=== PATIENT | male | born 1985 ===

== ENCOUNTER 2021-08-13 08:14 | Emergency (ER) | payer OTHER ==
[~2021-08-13] VITALS: Ht 157 cm; Wt 70.0 kg
[2021-08-13] MEDS ORDERED: LACTATED RINGERS 1,000 ML IV ONE ×2 (08:45→11:00)
[2021-08-13 09:00] LABS: ALBUMIN 4.4 GM/DL (3.2-4.5)
[2021-08-13 09:01] LABS: CALCIUM 9.7 MG/DL (8.5-10.1)
[2021-08-13 09:03] LABS: TOTAL PROTEIN 8.5 GM/DL (6.4-8.2)
[2021-08-13 09:04] LABS: BILIRUBIN,TOTAL 0.9 MG/DL (0.1-1.0)
[2021-08-13 09:06] LABS: CREATININE SERUM 0.79 MG/DL (0.60-1.30)
[2021-08-13] MEDS ORDERED: metroNIDAZOLE 500MG/100ML IVPB 100 ML IV ONE (09:15)
[2021-08-13] MEDS ORDERED: cefTRIAXone 1 GM PRE-MIX 50 ML IV ONE (09:15)
[2021-08-13] MEDS ORDERED: fentaNYL INJ 100 MCG/2 ML AMP IVP ONE (09:15)
[2021-08-13] MEDS ORDERED: ONDANSETRON 4 MG/2 ML (SDV) Z0FRAN IVP ONE (09:15)
[2021-08-13] MEDS ORDERED: NS IV 500 ML 500 ML IV ONE (09:15)
[2021-08-13 09:17] LABS: CLARITY,URINE CLEAR; COLOR,URINE YELLOW; GLUCOSE, URINE (UA) NEGATIVE (NEGATIVE); KETONES,URINE NEGATIVE (NEGATIVE); NITRITE,URINE NEGATIVE (NEGATIVE); PROTEIN,URINE 1+ (NEGATIVE)
[2021-08-13 09:18] LABS: BACTERIA,URINE NEGATIVE /HPF; BILIRUBIN,URINE NEGATIVE (NEGATIVE); LEUKOCYTE ESTERASE ,URINE NEGATIVE (NEGATIVE)
[2021-08-13 09:20] LABS: BASOPHILS % (AUTO) 0 % (0-10); EOSINOPHILS % (AUTO) 0 % (0-10); HEMATOCRIT 45 % (40-54); HEMOGLOBIN 15.5 g/dL (13.3-17.7); LYMPHOCYTES # (AUTO) 2.6 10^3/uL (1.0-4.0); LYMPHOCYTES % (AUTO) 15 % (12-44); MEAN CORPUSCULAR HEMOGLOBIN 31 pg (25-34); MEAN CORPUSCULAR HGB CONC 34 g/dL (32-36); MEAN CORPUSCULAR VOLUME 91 fL (80-99); MEAN PLATELET VOLUME 10.8 fL (9.0-12.2); MONOCYTES # (AUTO) 1.1 10^3/uL (0.0-1.0); MONOCYTES % (AUTO) 6 % (0-12); NEUTROPHILS # (AUTO) 13.5 10^3/uL (1.8-7.8); NEUTROPHILS % (AUTO) 78 % (42-75); PLATELET COUNT 439 10^3/uL (130-400); WHITE BLOOD COUNT 17.3 10^3/uL (4.3-11.0)
--- NOTE | 2021-08-13 09:20 | ED Abdominal Pain ---
General Chief Complaint: Abdominal/GI Problems Stated Complaint: ABD PAIN - FEVER Nursing Triage Note: ARRIVED VIA AMB WITHOUT DIFFICULTY. COMPLAINS OF LEFT LOWER ABD PAIN. STATES IT HURTS TO PEE AND POOP. ALSO COMPLAINS OF FEVER, COUGH, AND SORE THROAT. Source of Information: Patient Exam Limitations: Language Barrier (Use the language tablet historic interpreter) History of Present Illness Date Seen by Provider: Aug 13, 2021 Time Seen by Provider: 08:35 Initial Comments Patient presents ER by private conveyance chief complaint since yesterday afternoon he had some nontraumatic abdominal pain mostly down in his left lower quadrant abdomen. Not going into the flank or back. Little bit into his right lower quadrant as well. Painful urination, constipation had a small hard stool yesterday. No blood in the stool. No history of diverticulitis. No history of surgeries or colonoscopy. He does not follow with a doctor routinely. He is a little bit of nausea but no vomiting. He had some chills and sweats throughout the night. He took Tylenol which helped with the chills but not with his pain which he still rates as just under a 10 out of 10. Allergies and Home Medications Allergies Coded Allergies: No Known Drug Allergies (Unverified , 08/13/21) Patient Home Medication List Home Medication List Reviewed: Yes Review of Systems Review of Systems Constitutional: see HPI, chills, diaphoresis, fever (Subjective) EENTM: No Blurred Vision, No Double Vision Respiratory: Denies Cough, Denies Shortness of Air Cardiovascular: Denies Chest Pain, Denies Lightheadedness Gastrointestinal: See HPI, Abdominal Pain, Constipated; Denies Diarrhea; Nausea; Denies Poor Fluid Intake, Denies Vomiting Genitourinary: Burning; Denies Discharge Musculoskeletal: No back pain, No joint pain Skin: No pruritus, No rash All Other Systems Reviewed Negative Unless Noted: Yes Past Awhsvhf-Widrpx-Jywmlm Hx Patient Social History Tobacco Use?: No Substance use?: No Alcohol Use?: Yes Alcohol Frequency: Once in a while Immunizations Up To Date Second COVID19 Vaccination Sean: WN DATE COVID19 Vaccine Banquet Pilot: MODERNA Physical Exam Vital Signs Vital Signs - First Documented 08/13/21 08:30 Temp 37.1 Pulse 113 Resp 16 B/P (MAP) 144/98 (113) Pulse Ox 96 O2 Delivery Room Air Capillary Refill : Less Than 3 Seconds Height/Weight/BMI Height: '" Weight: lbs. oz. kg; 28.00 BMI Method: General Appearance: WD/WN, moderate distress HEENT: PERRL/EOMI, pharynx normal (Mildly dry oral mucosa) Neck: full range of motion, normal inspection Respiratory: lungs clear, normal breath sounds, no respiratory distress, no accessory muscle use Cardiovascular: normal peripheral pulses, regular rate, rhythm, tachycardia (120) Peripheral Pulses: 2+ Radial Pulses (R), 2+ Radial Pulses (L) Gastrointestinal: normal bowel sounds, soft, tenderness (Left lower quadrant pain, negative Rovsing sign, negative psoas sign, mild McBurney's point tenderness. Negative for Tejeda sign) Extremities: non-tender, normal inspection, normal capillary refill Back: normal inspection, CVA tenderness (L) (A little bit) Neurologic/Psychiatric: alert, normal mood/affect, oriented x 3 Skin: normal color, warm/dry Focused Exam Lactate Level 08/13/21 08:35: Lactic Acid Level 0.99 Lactic Acid Level Laboratory Tests Test 08/13/21 08:35 Lactic Acid Level 0.99 MMOL/L (0.50-2.00) Progress/Results/Core Measures Results/Orders Lab Results Laboratory Tests Test 08/13/21 08:35 08/13/21 08:44 Range/Units White Blood Count 17.3 H 4.3-11.0 10^3/uL Red Blood Count 4.98 4.30-5.52 10^6/uL Hemoglobin 15.5 13.3-17.7 g/dL Hematocrit 45 40-54 % Mean Corpuscular Volume 91 80-99 fL Mean Corpuscular Hemoglobin 31 25-34 pg Mean Corpuscular Hemoglobin Concent 34 32-36 g/dL Red Cell Distribution Width 11.9 10.0-14.5 % Platelet Count 439 H 130-400 10^3/uL Mean Platelet Volume 10.8 9.0-12.2 fL Immature Granulocyte % (Auto) 1 % Neutrophils (%) (Auto) 78 H 42-75 % Lymphocytes (%) (Auto) 15 12-44 % Monocytes (%) (Auto) 6 0-12 % Eosinophils (%) (Auto) 0 0-10 % Basophils (%) (Auto) 0 0-10 % Neutrophils # (Auto) 13.5 H 1.8-7.8 10^3/uL Lymphocytes # (Auto) 2.6 1.0-4.0 10^3/uL Monocytes # (Auto) 1.1 H 0.0-1.0 10^3/uL Eosinophils # (Auto) 0.0 0.0-0.3 10^3/uL Basophils # (Auto) 0.0 0.0-0.1 10^3/uL Immature Granulocyte # (Auto) 0.1 0.0-0.1 10^3/uL Neutrophils % (Manual) 65 % Lymphocytes % (Manual) 15 % Monocytes % (Manual) 11 % Eosinophils % (Manual) 0 % Basophils % (Manual) 0 % Band Neutrophils 2 % Reactive Lymphocytes 7 % Blood Morphology Comment NORMAL Prothrombin Time 13.5 12.2-14.7 SEC INR Comment 1.0 0.8-1.4 Activated Partial Thromboplast Time 30 24-35 SEC Sodium Level 137 135-145 MMOL/L Potassium Level 4.0 3.6-5.0 MMOL/L Chloride Level 100 98-107 MMOL/L Carbon Dioxide Level 23 21-32 MMOL/L Anion Gap 14 5-14 MMOL/L Blood Urea Nitrogen 12 7-18 MG/DL Creatinine 0.79 0.60-1.30 MG/DL Estimat Glomerular Filtration Rate 119 BUN/Creatinine Ratio 15 Glucose Level 145 H 70-105 MG/DL Lactic Acid Level 0.99 0.50-2.00 MMOL/L Calcium Level 9.7 8.5-10.1 MG/DL Corrected Calcium 9.4 8.5-10.1 MG/DL Total Bilirubin 0.9 0.1-1.0 MG/DL Aspartate Amino Transf (AST/SGOT) 20 5-34 U/L Alanine Aminotransferase (ALT/SGPT) 38 0-55 U/L Alkaline Phosphatase 105 40-136 U/L C-Reactive Protein High Sensitivity 12.22 H 0.00-0.50 MG/DL Total Protein 8.5 H 6.4-8.2 GM/DL Albumin 4.4 3.2-4.5 GM/DL Lipase 11 8-78 U/L SARS-CoV-2 RNA (RT-PCR) Not Detected Not Detecte Urine Color YELLOW Urine Clarity CLEAR Urine pH 6.0 5-9 Urine Specific [place] >1.030 1.016-1.022 Urine Protein 1+ H NEGATIVE Urine Glucose (UA) NEGATIVE NEGATIVE Urine Ketones NEGATIVE NEGATIVE Urine Nitrite NEGATIVE NEGATIVE Urine Bilirubin NEGATIVE NEGATIVE Urine Urobilinogen 0.2 < = 1.0 MG/DL Urine Leukocyte Esterase NEGATIVE NEGATIVE Urine RBC (Auto) TRACE H NEGATIVE Urine RBC NONE /HPF Urine WBC NONE /HPF Urine Squamous Epithelial Cells NONE /HPF Urine Crystals NONE /LPF Urine Bacteria NEGATIVE /HPF Urine Casts NONE /LPF Urine Mucus NEGATIVE /LPF Urine Culture Indicated NO My Orders Orders - EDIS BARBA Ua Culture If Indicated (08/13/21 08:37) Ed Iv/Invasive Line Start (08/13/21 08:41) Lactated Ringers (Lr 1000 Ml Iv Solution (08/13/21 08:45) Cbc With Automated Diff (08/13/21 08:41) Comprehensive Metabolic Panel (08/13/21 08:41) Hs C Reactive Protein (08/13/21 08:41) Lipase (08/13/21 08:41) Covid 19 Inhouse Test (08/13/21 08:41) Ondansetron Injection (Zofran Injectio (08/13/21 09:15) Fentanyl Inj (Sublimaze Injection) (08/13/21 09:15) Blood Culture (08/13/21 09:13) Urine Culture (08/13/21 09:13) Protime With Inr (08/13/21 09:13) Partial Thromboplastin Time (08/13/21 09:13) Chest 1 View, Ap/Pa Only (08/13/21 09:13) Ed Iv/Invasive Line Start (08/13/21 09:13) Ed Iv/Invasive Line Start (08/13/21 09:13) Vital Signs Adult Sepsis Patie Q15M (08/13/21 09:13) Remove Rings In Anticipation O (08/13/21 09:13) Lactic Acid Analyzer (08/13/21 09:13) Ceftriaxone 1 Gm Pre-Mix (Rocephin 1 Gm (08/13/21 09:15) Metronidazole 500mg/100ml Ivpb (Flagyl 5 (08/13/21 09:15) Ed Iv/Invasive Line Start (08/13/21 09:13) Ns Iv 500 Ml (Sodium Chloride 0.9%) (08/13/21 09:15) Manual Differential (08/13/21 08:35) Ct Abdomen/Pelvis Wo (08/13/21 09:22) Ed Iv/Invasive Line Start (08/13/21 10:51) Lactated Ringers (Lr 1000 Ml Iv Solution (08/13/21 11:00) Morphine Injection (Morphine Injection (08/13/21 10:51) Medications Given in ED Current Medications Medications Dose Ordered Sig/Annabelle Route Start Time Stop Time Status Last Admin Dose Admin Ceftriaxone Sodium/Dextrose 50 ml @ 100 mls/hr ONCE ONCE IV 08/13/21 09:15 08/13/21 09:44 DC 08/13/21 10:02 100 MLS/HR Fentanyl Citrate 50 mcg ONCE ONCE IVP 08/13/21 09:15 08/13/21 09:16 DC 08/13/21 09:27 50 MCG Lactated Ringer's 1,000 ml @ 0 mls/hr Q0M ONCE IV 08/13/21 08:45 08/13/21 08:46 DC 08/13/21 08:58 1,000 MLS/HR Lactated Ringer's 1,000 ml @ 0 mls/hr Q0M ONCE IV 08/13/21 11:00 08/13/21 11:01 DC 08/13/21 11:05 1,000 MLS/HR Metronidazole 100 ml @ 100 mls/hr ONCE ONCE IV 08/13/21 09:15 08/13/21 10:14 DC 08/13/21 10:33 100 MLS/HR Ondansetron HCl 8 mg ONCE ONCE IVP 08/13/21 09:15 08/13/21 09:16 DC 08/13/21 09:26 8 MG Sodium Chloride 500 ml @ 0 mls/hr Q0M ONCE IV 08/13/21 09:15 08/13/21 09:16 DC 08/13/21 10:02 500 MLS/HR Vital Signs/I&O 08/13/21 08:30 Temp 37.1 Pulse 113 Resp 16 B/P (MAP) 144/98 (113) Pulse Ox 96 O2 Delivery Room Air Blood Pressure Mean: 113 Progress Progress Note #1: Time: :22 Progress Note Septic work-up with a suspected infection perhaps UTI/pyelonephritis/ureteral c alculus versus colitis/less likely appendicitis. After we get his urine back we will make a decision on CT scan with or without IV contrast. Progress Note #2: Time: 10:50 Progress Note The patient's nausea is gone however his pain is not terribly improved. He says is about the same as before. We are going to try 6 mg of morphine give him another liter of fluids since he is still tachycardic. We did discuss inpatient versus outpatient management of diverticulitis. He would like to try and go outpatient if we get his pain under better control. Progress Note #3: Time: 11:40 Progress Note Patient states his pain is significantly less and he is ready to go home. We will make sure he has some pain medications, nausea medicines and put him on Cipro and Flagyl. Since he does not have a primary care provider we have encouraged him to establish care and follow-up with 1 or follow-up in 1 week with the surgeon to make sure he has improving. We did go over return precautions. Diagnostic Imaging Diagonstic Imaging: Xray Plain Films/CT/US/NM/MRI: chest Comments [facility], [place] NAME: ASHLYN GUTIERREZ [facility] REC#: [id number] PT STATUS: REG ER : 1985 PHYSICIAN: EDIS BARBA MD ADMIT DATE: 08/13/21/ER Draft Date of Exam:08/13/21 CHEST 1 VIEW, AP/PA ONLY CLINICAL INDICATION: Patient with sepsis. EXAM: Portable chest x-ray upright view. COMPARISON: None. FINDINGS: Lungs/pleura: There is mild bibasilar atelectasis. Otherwise, lungs are clear. There is no pneumothorax. There is no pleural effusion. Mediastinum: Unremarkable. Pulmonary vasculature: Unremarkable. Heart: Unremarkable. Bones/extrathoracic soft tissue: Unremarkable. IMPRESSION: There is mild bibasilar atelectasis. There is no radiographic evidence of acute cardiopulmonary process. Dictated on workstation # [id number] Dict: 08/13/21 0929 Trans: 08/13/21 0939 TONIO [id number] Interpreted by: CLAUDETTE YEUNG MD Electronically signed by: Reviewed: Reviewed by Me Diagonstic Imaging: CT Plain Films/CT/US/NM/MRI: abdomen, pelvis Comments [facility] [place], [place] NAME: ASHLYN GUTIERREZ [facility] REC#: [id number] PT STATUS: REG ER : 1985 PHYSICIAN: EDIS BARBA MD ADMIT DATE: 08/13/21/ER Draft Date of Exam:08/13/21 CT ABDOMEN/PELVIS WO PROCEDURE: CT abdomen and pelvis without contrast. TECHNIQUE: Multiple contiguous axial images were obtained through the abdomen and pelvis without the use of intravenous contrast. Auto Exposure Controls were utilized during the CT exam to meet ALARA standards for radiation dose reduction. INDICATION: Cough and fever with abdominal pain FINDINGS: There is low density throughout the liver indicating steatosis. No focal hepatic, gallbladder, pancreatic or splenic abnormality is identified. Adrenal glands and kidneys are also unremarkable. There is mural thickening extending from the descending colon through the proximal sigmoid colon with surrounding edema and inflammation. There is also calcification within what appear to be several diverticula within the segment of colon. Unopacified urinary bladder is unremarkable. There is herniation of fat into the right inguinal canal. There is no evidence of appendiceal inflammation. No abscess or pneumoperitoneum is identified. IMPRESSION: Mural thickening and inflammation extending from the descending colon to the proximal sigmoid colon likely related to acute diverticulitis without CT evidence of abscess or pneumoperitoneum. Dictated on workstation # [id number] Dict: 08/13/21 0943 Trans: 08/13/21 0959 TONIO [id number] Interpreted by: LUNA LOZADA MD Electronically signed by: Reviewed: Reviewed by Me Departure Impression Primary Impression: Diverticulitis of intestine Qualified Codes: K57.32 - Diverticulitis of large intestine without perforation or abscess without bleeding Disposition: 01 HOME, SELF-CARE Condition: Stable Departure-Patient Inst. Decision time for Depature: 11:41 Referrals: [facility] (PCP/Family) Primary Care Physician ROBI HAYWARD MD Patient Instructions: Diverticulitis (DC) Add. Discharge Instructions: Drink plenty of fluids. Hydrocodone 1 to 2 tablets every 4 hours as needed for severe pain. Ondansetron 1 tablet every 6 hours as needed for nausea or vomiting. Flagyl 1 capsule 3 times a day with something to eat or drink. Ciprofloxacin 1 tablet twice a day for a week. Stick to a liquid diet until your nausea is gone and then you can increase to a soft, nonspicy, nongreasy meals. As your symptoms improve you can advance your diet towards a normal, regular diet. If you need help managing symptoms or not improving by next Wednesday then follow- up with Dr. HAYWARD, general surgery for recheck. If your symptoms are significantly worse or you are having intractable pain, intractable nausea, fever above 102.5 or other worrisome symptoms then please return to the ER and allow us to help you. All discharge instructions reviewed with patient and/or family. Voiced unders tanding. Scripts Ciprofloxacin HCl (Ciprofloxacin HCl) 500 Mg Tablet 500 MG PO BID for 7 Days, #14 TAB 0 Refills Prov: EDIS BARBA 08/13/21 Metronidazole (Metronidazole) 500 Mg Tablet 500 MG PO TID for 7 Days, #21 TAB 0 Refills Prov: EDIS BARBA 08/13/21 Ondansetron (Ondansetron Odt) 4 Mg Tab.rapdis 4 MG PO Q6H PRN for NAUSEA/VOMITING, #15 TAB 0 Refills Prov: EDIS BARBA 08/13/21 Hydrocodone/Acetaminophen (Hydrocodone-Acetamin 5-325 mg) 5 Mg-325 Mg Tablet 1-2 TAB PO Q4H PRN for PAIN-MODERATE (5-7), #22 TAB 0 Refills Prov: EDIS BARBA 08/13/21 Work/School Note: Work Release Form Date Seen in the Emergency Department: Aug 13, 2021 Return to Work: Aug 18, 2021 Restrictions: No Restrictions Copy Copies To 1: ROBI HAYWARD MD, TITUS J Aug 13, 2021 09:20
[2021-08-13 09:31] LABS: PROTHROMBIN TIME PATIENT 13.5 SEC (12.2-14.7)
--- NOTE | 2021-08-13 09:39 | Diagnostic Imaging Report ---
CLINICAL INDICATION: Patient with sepsis. EXAM: Portable chest x-ray upright view. COMPARISON: None. FINDINGS: Lungs/pleura: There is mild bibasilar atelectasis. Otherwise, lungs are clear. There is no pneumothorax. There is no pleural effusion. Mediastinum: Unremarkable. Pulmonary vasculature: Unremarkable. Heart: Unremarkable. Bones/extrathoracic soft tissue: Unremarkable. IMPRESSION: There is mild bibasilar atelectasis. There is no radiographic evidence of acute cardiopulmonary process. Dictated by: Dictated on workstation # [id number]
--- NOTE | 2021-08-13 10:00 | Diagnostic Imaging Report ---
PROCEDURE: CT abdomen and pelvis without contrast. TECHNIQUE: Multiple contiguous axial images were obtained through the abdomen and pelvis without the use of intravenous contrast. Auto Exposure Controls were utilized during the CT exam to meet ALARA standards for radiation dose reduction. INDICATION: Cough and fever with abdominal pain FINDINGS: There is low density throughout the liver indicating steatosis. No focal hepatic, gallbladder, pancreatic or splenic abnormality is identified. Adrenal glands and kidneys are also unremarkable. There is mural thickening extending from the descending colon through the proximal sigmoid colon with surrounding edema and inflammation. There is also calcification within what appear to be several diverticula within the segment of colon. Unopacified urinary bladder is unremarkable. There is herniation of fat into the right inguinal canal. There is no evidence of appendiceal inflammation. No abscess or pneumoperitoneum is identified. IMPRESSION: Mural thickening and inflammation extending from the descending colon to the proximal sigmoid colon likely related to acute diverticulitis without CT evidence of abscess or pneumoperitoneum. Dictated by: Dictated on workstation # [id number]
[2021-08-13 10:05] LABS: BAND NEUTROPHILS 2 %; BASOPHILS % (MANUAL) 0 %; EOSINOPHILS % (MANUAL) 0 %; LYMPHOCYTES % (MANUAL) 15 %; MONOCYTES % (MANUAL) 11 %; NEUTROPHILS % (MANUAL) 65 %; RBC MORPH NORMAL; REACTIVE LYMPHOCYTES 7 %
[2021-08-13] MEDS ORDERED: morphine INJ 10 MG/ML 1ML (SYR OR VIAL) IVP STA (10:51)
[2021-08-13] MEDS ORDERED: ACHD5005 PO (11:45)
[2021-08-13] MEDS ORDERED: ONDA4TAB11 PO (11:45)
[2021-08-13] MEDS ORDERED: CIPR500T5 PO (11:45)
[2021-08-13] MEDS ORDERED: METR-145 PO (11:45)
[2021-08-13 12:09] VITALS: BP 154/92
== END 2021-08-13 12:09 | disposition home or self-care (01) ==
LOC: ER 08:17
DX: K57.32 Diverticulitis of large intestine without perforation or abscess without bleeding (principal); Z20.822 Contact with and (suspected) exposure to COVID-19
CPT/HCPCS: 36415; 71045; 74176; 80053; 81000; 83605; 83690; 85007; 85027; 85610; 85730; 86141; 87040; 87088; 87636